=== PATIENT | female | born 1935 | race Caucasian/White ===

== ENCOUNTER → 2019-06-04 | Outpatient (CLI) | payer MEDICARE, OTHER ==
[~2019-06-04] MED LIST: ACYCLOVIR800 MG PO; AMLODIPINE BESYL5 MG PO; GEODON PO; HYDROCODON-ACE1 EA11 PO; KEFLEX500 MG PO; LEVOTHYROXINE PO; LISINOPRIL; SIMVASTATIN20 MG PO; UNKNOWN MEDS
--- NOTE | 2019-06-04 17:27 | Diagnostic Imaging Report ---
EXAM: HIP LEFT 2-3 VW (+/- PELVIS) DATE: 06/04/2019 3:59 PM INDICATION: Left hip pain COMPARISON: CT abdomen/pelvis without contrast from 11/20/2018 FINDINGS: There is a partially visualized right femoral dialysis catheter and left ureteral stent. There are postsurgical changes of the right hip with 3 intact appearing fixation screws identified. There is no evidence for acute fracture or dislocation. There are degenerative changes of the left hip including joint space narrowing and associated subchondral sclerosis. Extensive soft tissue calcifications noted within throughout the surrounding pelvic soft tissues, as noted on the prior CT examination. IMPRESSION: No acute radiographic abnormality within the identified within the left hip. Signed by: Dr. Michael Obrien MD on 06/04/2019 5:24 PM
--- NOTE | 2019-06-04 17:30 | Diagnostic Imaging Report ---
EXAM: THORACIC SPINE 2VW DATE: 06/04/2019 4:08 PM INDICATION: Back pain COMPARISON: None FINDINGS: There is no evidence for acute fracture or dislocation within the thoracic spine. Vertebral body heights are maintained. There are multilevel degenerative changes within the thoracic spine. Bony mineralization is diffusely decreased. No focal lytic abnormality is identified. Vascular stent noted within the left brachiocephalic region. Extensive vascular calcifications noted within the thoracic aorta. Cholecystectomy clips noted within the right upper quadrant. The visualized lungs are grossly unremarkable. IMPRESSION: No acute radiographic abnormality identified within the thoracic spine. Signed by: Dr. Michael Obrien MD on 06/04/2019 5:27 PM
== END ==
LOC: RAD 15:38
DX: M54.5 Low back pain (principal); M25.552 Pain in left hip
CPT/HCPCS: 72070